=== PATIENT | female | born 1955 | race Caucasian/White ===

== ENCOUNTER 2020-07-31 17:37 | Emergency (ER) | payer OTHER ==
[~2020-07-31] VITALS: Ht 149.9 cm; Wt 74.8 kg
[2020-07-31 17:46] VITALS: BP 183/91
[2020-07-31] MEDS ORDERED: LIPITOR 20 MG T20 M1 PO (17:49)
[2020-07-31] MEDS ORDERED: SYNTHROID100 MC1 PO (17:49)
[2020-07-31] MEDS ORDERED: NEURONTIN300 MG PO (17:49)
[2020-07-31] MEDS ORDERED: FLEXERIL PO (17:50)
[2020-07-31] MEDS ORDERED: OMEPRAZOLE20 M2 PO (17:50)
[2020-07-31] MEDS ORDERED: AMBIEN 10 MG TA10 MG PO (17:51)
[2020-07-31] MEDS ORDERED: CLEOCIN HCL150 M1 PO (17:52)
== END 2020-07-31 17:58 | disposition home or self-care (01) ==
LOC: M.ERS 17:37
DX: S51.852A Open bite of left forearm, initial encounter (principal); L03.114 Cellulitis of left upper limb; E03.9 Hypothyroidism, unspecified; E78.5 Hyperlipidemia, unspecified; K21.9 Gastro-esophageal reflux disease without esophagitis; Z79.899 Other long term (current) drug therapy; Z88.1 Allergy status to other antibiotic agents; Z88.5 Allergy status to narcotic agent; W54.0XXA Bitten by dog, initial encounter; Y93.89 Activity, other specified; Y92.89 Other specified places as the place of occurrence of the external cause; Y99.8 Other external cause status